=== PATIENT | female | born 2000 | race Caucasian/White ===

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

== ENCOUNTER 2021-03-02 04:19 | Emergency (ER) | payer BC, OTHER ==
[~2021-03-02] VITALS: Ht 149.9 cm; Wt 67.3 kg
[2021-03-02] MEDS ORDERED: HAIL1TAB PO (04:26)
[2021-03-02] MEDS: LIDOCAINE 5% (LIDODERM) PATCH TD ONE (06:48)
[2021-03-02] MEDS: CYCLOBENZAPRINE 10MG TABLET PO ONE (06:48)
[2021-03-02] MEDS: KETOROLAC 60MG 2ML VIAL IM ONE (06:49)
[2021-03-02] MEDS ORDERED: IBUP-1022 PO (07:08)
[2021-03-02] MEDS ORDERED: LIDO5TD TOP (07:08)
[2021-03-02] MEDS ORDERED: CYCL-707 PO (07:08)
[2021-03-02 07:27] VITALS: BP 124/71
[2021-03-02] MEDS ORDERED: **NOTE PATIENT COMMENT** MISC XX SCH (21:00)
== END 2021-03-02 07:32 | disposition home or self-care (01) ==
LOC: M ED 04:19
DX: S39.012A Strain of muscle, fascia and tendon of lower back, initial encounter (principal); S29.012A Strain of muscle and tendon of back wall of thorax, initial encounter; X58.XXXA Exposure to other specified factors, initial encounter; Y92.89 Other specified places as the place of occurrence of the external cause; Y93.89 Activity, other specified; Y99.8 Other external cause status
CPT/HCPCS: 96372; 99283; J1885

== ENCOUNTER → 2021-11-16 | Outpatient (CLI) | payer BC ==
[~2021-11-16] MED LIST: CYCL-707 PO; HAIL1TAB PO; IBUP-1022 PO; LIDO5TD TOP
== END ==
LOC: M WUC 15:06
PROVIDERS: ATTEND Registered Nurse
DX: R05.9 Cough, unspecified (principal); R06.02 Shortness of breath; Z86.16 Personal history of COVID-19

== ENCOUNTER → 2022-02-25 | Outpatient (REF) | payer BC ==
[2022-02-25 22:51] LABS: GC DNA AMPLIFICATION NEGATIVE (NEGATIVE)
== END ==
LOC: M WUC 20:08
PROVIDERS: ATTEND Physician Assistant
DX: R10.30 Lower abdominal pain, unspecified (principal)

== ENCOUNTER → 2022-10-13 | Outpatient (CLI) | payer BC, OTHER | LOC: M WUC 15:04 | PROVIDERS: ATTEND Physician Assistant Medical | DX: M54.9 Dorsalgia, unspecified (principal) ==

== ENCOUNTER → 2023-03-17 | Outpatient (CLI) | payer OTHER | LOC: M RAD 06:36 | PROVIDERS: ATTEND Nurse Practitioner | DX: M51.16 Intervertebral disc disorders with radiculopathy, lumbar region (principal); M48.061 Spinal stenosis, lumbar region without neurogenic claudication; M47.816 Spondylosis without myelopathy or radiculopathy, lumbar region ==

== ENCOUNTER → 2024-06-27 | Outpatient (REF) | payer OTHER | LOC: M SFHCWAGY 10:37 | PROVIDERS: ATTEND Nurse Practitioner Family | DX: R87.5 Abnormal microbiological findings in specimens from female genital organs (principal) ==